=== PATIENT | male | born 1930 | race Caucasian/White ===

== ENCOUNTER 2020-04-03 01:42 | Observation (INO) | payer MEDICARE, OTHER ==
[2020-04-03] VITALS (7 sets, daily range): BP systolic 112–135; BP diastolic 41–63
[~2020-04-03] VITALS: Ht 180.3 cm; Wt 79.6 kg
[2020-04-03] MEDS ORDERED: LISINOPRIL10 MG PO (01:52)
[2020-04-03 02:23] LABS: ABSOLUTE EOSINOPHILS 0.1 thou/uL (0.0-0.7); ABSOLUTE LYMPHOCYTES 1.7 thou/uL (0.8-5.3); ABSOLUTE MONOCYTES 0.6 thou/uL (0.0-1.2); BASOPHILS 0.7 %; EOSINOPHILS 1.9 %; HEMATOCRIT 37.3 % (42.0-52.0); HEMOGLOBIN 12.5 gm/dL (14.0-18.0); LYMPHOCYTES 25.9 %; MCH 33.4 pg (26.0-34.0); MCHC 33.6 g/dL (28.0-37.0); MCV 99.2 fL (80.0-100.0); MONOCYTES 8.8 %; MPV 9.3 fl. (7.2-11.1); NUCLEATED RBCS 0 /100WBC; PLATELET COUNT* 133 thou/uL (150-400); POLYS 62.7 %; RBC 3.76 mil/uL (4.50-6.00); RDW-CV 13.5 % (10.5-14.5); URINE BILIRUBIN NEGATIVE (Negative); URINE BLOOD TRACE (Negative); URINE CLARITY CLEAR; URINE COLOR YELLOW; URINE GLUCOSE-RANDOM NEGATIVE (Negative); URINE KETONES NEGATIVE (Negative); URINE LEUKOCYTES-REFLEX NEGATIVE (Negative); URINE NITRITE-REFLEX NEGATIVE (Negative); URINE PROTEIN NEGATIVE (Negative); URINE UROBILINOGEN 0.2 E.U./dl (0.2-1.0); WBC 6.5 thou/uL (4.0-11.0)
[2020-04-03 02:33] LABS: CALCIUM 8.6 mg/dL (8.5-10.1); CREATININE 1.5 mg/dL (0.6-1.3); POTASSIUM 4.1 mmol/L (3.5-5.1)
[2020-04-03 02:35] LABS: PROTIME 10.3 Seconds (9.20-11.50)
[2020-04-03 02:44] LABS: ALBUMIN 3.3 g/dL (3.4-5.0); MAGNESIUM 2.2 mg/dL (1.8-2.4); TOTAL BILIRUBIN 0.6 mg/dL (<0.1-1.0); TOTAL PROTEIN 6.5 g/dL (6.4-8.2)
[2020-04-03 08:42] LABS: CALCIUM 8.9 mg/dL (8.5-10.1); CREATININE 1.3 mg/dL (0.6-1.3)
[2020-04-03 08:45] LABS: MAGNESIUM 2.2 mg/dL (1.8-2.4); PHOSPHORUS* 3.2 mg/dL (2.5-4.9)
--- NOTE | 2020-04-03 10:01 | EKG ---
[place] [address] ELECTROCARDIOGRAM REPORT Name: RAYNE ROY Room: [address]R.#: [id number] Admission: 04/03/20 Attend Phys: Felecia Polanco, Discharge: Date of : [birth year] Date of Service: 04/03/20 0146 Report #: [id number] THIS REPORT FOR: //name// [facility] ED Test Date: 2020-04-03 Test Time: 01:46:32 Pat Name: RAYNE ROY Department: Room: [facility] Gender: M [employer]er: [place] : 1930 Requested By: Rosamaria Lieberman Order Number: [id number] MD: Obey Knutson Measurements Intervals [place] Rate: 91 P: 71 NC: 229 QRS: -53 QRSD: 124 T: 101 QT: 407 QTc: 501 Interpretive Statements Sinus rhythm Prolonged NC interval Probable left atrial enlargement Nonspecific IVCD with LAD LVH with secondary repolarization abnormality Anterior Q waves, possibly due to LVH No previous ECG available for comparison Electronically Signed On 04-03-2020 10:01:34 [employer]PER[employer] TELEPH[employer] ANSWERING SERVICE by Obey Knutson [email or web address] <ELECTRONICALLY SIGNED> By: Obey Knutson MD, [facility] 04/03/20 1001 5 Obey Knutson MD, [facility] /EPI
--- NOTE | 2020-04-03 10:29 | CON ---
[facility] [address] [place] [address] CONSULTATION Name: RAYNE ROY Room: [address] M.R.#: [id number] Admission: 04/03/20 Attend Phys: Felecia Polanco MD Discharge: Date of : [birth year] Report #: [id number] THIS REPORT FOR: cc: Sage Dunn MD, Matthew D MD Obey Knutson MD [facility] CARDIOLOGY CONSULTATION HISTORY OF PRESENT ILLNESS: The patient is an 89-year-old white male who I was asked to see in the hospital today after he was noted to be tachycardic. The patient has no previous history of heart disease. He stays fairly active. He has had no previous cardiac evaluation. He was feeling well yesterday. He went to bed last night. As he lied down, he felt his heart pounding. He took his blood pressure, heart rate is over 130. Paramedics were called. When paramedics arrived, he had a hospital monitor applied that showed evidence of a wide complex tachycardia at 160 beats per minute. He then converted to sinus rhythm. He denied any chest pain, shortness of breath, syncope. He does have a history of a heart murmur. PAST MEDICAL HISTORY: Significant for tonsillectomy, cataract extraction, hypertension. CURRENT MEDICATIONS: Include lisinopril 10 mg a day. ALLERGIES: HE HAS A PREVIOUS INTOLERANCE TO AMOXICILLIN. FAMILY HISTORY: Negative for heart disease. SOCIAL HISTORY: He is . He and his live in [facility] in [place], [place]. Smokes cigars occasionally. No alcohol abuse. He does drink caffeine. REVIEW OF SYSTEMS: No history of stroke, asthma, liver disease, kidney disease, cancer, psychiatric illness, chronic skin condition. PHYSICAL EXAMINATION: GENERAL: Revealed an elderly, frail-appearing male, lying in bed, appeared in no distress. VITAL SIGNS: He had a blood pressure of 120/60, pulse 60. He was afebrile. HEENT: He was anicteric. Conjunctivae pink. Mucous membranes moist. NECK: Veins do not appear distended. No carotid bruits. Neck supple. CHEST: Clear to auscultation. CARDIOVASCULAR: Regular rate and rhythm, grade 3 holosystolic murmur at the apex. ABDOMEN: [place] [address] CONSULTATION Name: RAYNE ROY [address]: [address]#: [id number] Admission: 04/03/20 Attend Phys: Felecia Polanco MD Discharge: Date of : [birth year] Report #: [id number] EXTREMITIES: Had trace edema. Posterior tibial pulse 1+ bilaterally. SKIN: Cool and dry. NEUROLOGIC: Nonfocal. His ECG after adenosine showed a sinus rhythm, left anterior fascicular block. His workup in the Emergency Room last night, he had a portable chest x-ray that showed normal heart size, clear lung mejia. LABORATORY WORK: Sodium 144, creatinine 1.3. Liver function studies were normal. Troponin 0.06. BNP 4772. TSH 2.3. D-dimer 1.7. Hemoglobin 12.5. IMPRESSION AND RECOMMENDATIONS: 1. Paroxysmal supraventricular tachycardia. I would consider starting flecainide. If he has recurrent episodes, I would consider ablation. 2. Hypertension. The patient is on an THANH inhibitor. <ELECTRONICALLY SIGNED> By: Obey Knutson MD, [facility] 04/03/20 1029 [id number] Knutson MD, [facility] /nt
--- NOTE | 2020-04-03 12:52 | 2DMMODE ---
[place] [address] 2 D/M-MODE ECHOCARDIOGRAM Name: RAYNE ROY Room: [address] Kelvin#: [id number] Admission: 04/03/20 Attend Phys: Felecia Polanco, Discharge: Date of : [birth year] Date of Service: 04/03/20 1252 Report #: [id number] THIS REPORT FOR: cc: Sage Dunn MD, Matthew D MD Blick,Obey Morton MD [facility] ~ APPROVED REPORT Study performed: 04/03/2020 10:37:23 EXAM: Comprehensive 2D, Doppler, and color-flow Echocardiogram Patient Location: In-Patient Room #: [facility] Status: routine BSA: 1.97 HR: 50 bpm BP: 112/48 mmHg Rhythm: NSR Other Information Study Quality: Good Indications Arrhythmia 2D Dimensions IVSd: 11.79 (7-11mm) LVOT Diam: 23.41 (18-24mm) LVDd: 50.79 mm PWd: 11.18 (7-11mm) Ascending Ao: 25.83 (22-36mm) LVDs: 32.06 (25-40mm) Aortic Root: 34.60 mm Volumes Left Atrial Volume (Systole) LA ESV Index: 42.10 mL/m2 Aortic Valve AoV Peak Phani.: 3.17 m/s AO Peak Gr.: 40.08 mmHg LVOT Max P.24 mmHg AO Mean Gr.: 23.13 mmHg LVOT Mean P.65 mmHg LVOT Max V: 0.56 m/s AO V2 VTI: 85.52 cm LVOT Mean V: 0.38 m/s FERNANDO (VTI): 0.86 cm2 LVOT V1 VTI: 17.16 [place] [address] 2 D/M-MODE ECHOCARDIOGRAM Name: RAYNE ROY Room: [address]#: [id number] Admission: 04/03/20 Attend Phys: Felecia Polanco, Discharge: Date of : [birth year] Date of Service: 04/03/20 1252 Report #: [id number] Mitral Valve E/A Ratio: 0.78 MV Decel. Time: 413.92 ms MV E Max Phani.: 0.45 m/s MV PHT: 120.04 ms MVA (PHT): 1.83 cm2 TDI E/Lateral E': 5.00 E/Medial E': 7.50 Medial E' Phani.: 0.06 m/s Lateral E' Phani.: 0.09 m/s Pulmonary Valve PV Peak Phani.: 0.85 m/s PV Peak Gr.: 2.89 mmHg Tricuspid Valve RAP Estimate: 5.00 mmHg TR Peak Gr.: 20.67 mmHg RVSP: 25.00 mmHg PA Pressure: 25.00 mmHg Left Ventricle The left ventricle is normal size. There is normal LV segmental wall motion. Mild concentric left ventricular hypertrophy. Left ventricular systolic function is normal. The left ventricular ejection fraction is within the normal range. LVEF is 55-60%. Grade I - abnormal relaxation pattern. Right Ventricle The right ventricle is normal size. The right ventricular systolic function is normal. Atria Left atrium is mild to moderately dilated. The right atrium size is normal. Aortic Valve Aortic valve is calcified. Mild aortic regurgitation. moderate aortic stenosis. Mitral Valve The mitral valve is normal in structure. Trace mitral regurgitation. No evidence of mitral valve stenosis. Tricuspid Valve The tricuspid valve is normal in structure. Mild tricuspid regurgitation. [place] [address] 2 D/M-MODE ECHOCARDIOGRAM Name: RAYNE ROY Room: [address]#: [id number] Admission: 04/03/20 Attend Phys: Felecia Polanco, Discharge: Date of : [birth year] Date of Service: 04/03/20 1252 Report #: [id number] Pulmonic Valve The pulmonary valve is normal in structure. Mild pulmonic regurgitation. Great Vessels The aortic root is normal in size. IVC is normal in size and collapses >50% with inspiration. Pericardium There is no pericardial effusion. <Conclusion> Mild concentric left ventricular hypertrophy. LVEF is 55-60%. Left atrium is mild to moderately dilated. moderate aortic stenosis. Mild aortic regurgitation. <ELECTRONICALLY SIGNED> By: Obey Knutson MD, FACC 04/03/20 1252 1252 1252 Obey Knutson MD, FACC /INF
[2020-04-04 04:14] VITALS: BP 125/44
[2020-04-04 04:17] VITALS: BP 125/44; BP 137/79
[2020-04-04 05:09] LABS: CHOLESTEROL 191 mg/dL (<200); HDL CHOLESTEROL 53 mg/dL (>40); LDL CHOLESTEROL 127 mg/dL (<100); TC:HDL 3.6 Ratio (Not establshd); TRIGLYCERIDE 59 mg/dL (<150); VLDL 12 mg/dL (<40)
[2020-04-04 05:13] LABS: SERUM ASSESSMENT CLEAR
[2020-04-04 08:08] VITALS: BP 134/49
[2020-04-04] MEDS ORDERED: FLECAINIDE ACET50 M1 PO (08:20)
[2020-04-04 10:50] VITALS: BP 134/49
== END 2020-04-04 11:10 | disposition home or self-care (01) ==
LOC: M.ERS 01:42 → M.TBA-ER 03:49 → M.2W 03:49
PROVIDERS: Emergency Medicine; Internal Medicine; Internal Medicine Cardiovascular Disease; ADMIT Internal Medicine; ATTEND Internal Medicine
DX: I47.1 Supraventricular tachycardia (principal); I12.9 Hypertensive chronic kidney disease with stage 1 through stage 4 chronic kidney disease, or unspecified chronic kidney disease; N18.30 Chronic kidney disease, stage 3 unspecified; N17.9 Acute kidney failure, unspecified; E88.09 Other disorders of plasma-protein metabolism, not elsewhere classified; F17.290 Nicotine dependence, other tobacco product, uncomplicated; Z79.899 Other long term (current) drug therapy; Z20.828 Contact with and (suspected) exposure to other viral communicable diseases